=== PATIENT | male | born 1965 | race Caucasian/White ===

== ENCOUNTER → 2017-12-13 | Outpatient (CLI) | payer OTHER ==
--- NOTE | 2017-12-13 18:34 | PN ---
PROGRESS NOTE This is a 52-year-old male patient with severe AVA with an AHI of 102, coming in for a followup. The patient has cut down on his carb intake and he has lost approximately 30 pounds and he is currently down to 262 pounds. He is wearing his CPAP at a pressure of 16 cm of water. He is very compliant and he is still benefitting from the treatment. He is using the AirFit P10 nose pillow. He is waking up alert and refreshed during the day, averaging more than 6 hours of CPAP use per night, and has no specific complaints. He is interested in exploring other options in terms of his nose pillow. His current Delta score is down to 5 and he denies having fallen asleep while driving or doing any day activity. REVIEW OF SYSTEMS: Twelve-point review of systems was done. It was negative other than significant amount of weight loss along with dieting, and the patient has lost more than 30 pounds. PHYSICAL EXAMINATION: BP is 144/78, pulse 71, respirations 16, temperature 98.0, saturation 96% on room air. Weight is 262. Height is 5 feet 8 inches, BMI is 39.2, and Delta score is 5. GENERAL APPEARANCE: Calm, comfortable. Head is atraumatic, normocephalic. NECK: Supple. There is no JVD. No goiter or neck masses. LUNGS: Clear to auscultation. HEART: Sounds are regular rate and rhythm. Normal S1, S2. No S3, S4. No murmurs. ABDOMEN: Soft, nontender. No organomegaly. EXTREMITIES: No edema. No cyanosis or clubbing. Neurologically the patient is alert and oriented x3. There is no focal neurological deficit. PSYCHIATRIC: The patient has no anxiety or depression. SKIN: There is no wound or ulceration. IMPRESSION: 1. Severe obstructive sleep apnea with an AHI of 102, currently on CPAP pressure of 16 cm of water. 2. Morbid obesity with weight loss of more than 30 pounds, currently down to 262. 3. Hypersomnia, recovered. Delta score is down to 5. 4. Hypertension. 5. Hyperlipidemia. PLAN: 1. Drop the CPAP pressure down to 14 cm of water. 2. Try alternative masks, including the DreamWear medium-sized nose mask. The patient was very comfortable with the DreamWear and he is interested in switching his mask interface at a later stage. Currently he has 2 options, which are going to be the AirFit P10 and the DreamWear nose mask. We will make a final decision after trying both. I will see him back in a year's time in followup. Encourage further weight loss. DANIEL / TYLER: [id number] /
== END | disposition home or self-care (01) ==
LOC: SLEEP 16:32
PROVIDERS: ATTEND Internal Medicine Critical Care Medicine
DX: G47.33 Obstructive sleep apnea (adult) (pediatric) (principal); E66.01 Morbid (severe) obesity due to excess calories; I10 Essential (primary) hypertension; E78.5 Hyperlipidemia, unspecified; Z99.89 Dependence on other enabling machines and devices; Z68.39 Body mass index [BMI] 39.0-39.9, adult

== ENCOUNTER 2020-08-28 21:26 | Emergency (ER) | payer OTHER ==
[2020-08-28] MEDS ORDERED: MORPHINE SULFATE 4 MG/ML SYRINGE IV STA (22:31)
[2020-08-28] MEDS ORDERED: PANTOPRAZOLE 40 MG/10 ML VIAL IVP STA (22:31)
[2020-08-28] MEDS ORDERED: SODIUM CHLORIDE 0.9% 1,000 ML IV STA (22:31)
[2020-08-28 22:59] LABS: Basophils # (A) 0.1 k/uL (0-0.2); Basophils % (A) 1 %; Eosinophils # (A) 0.3 k/uL (0-0.7); Eosinophils % (A) 3 %; HGB 13.1 gm/dL (13.0-17.5); Lymphocytes % (A) 22 %; MCH 30.2 pg (25.0-35.0); MCHC 33.7 g/dL (31.0-37.0); MCV 89.4 fL (80.0-100.0); Mean Platelet Volume 6.6; Monocytes # (A) 0.6 k/uL (0-1.0); Monocytes % (A) 7 %; Neutrophils # (A) 5.7 k/uL (1.3-7.7); Neutrophils % (A) 65 %; Platelet Count 298 k/uL (150-450); RBC 4.36 m/uL (4.30-5.90); WBC 8.8 k/uL (3.8-10.6)
[2020-08-28 23:03] LABS: Appearance,Urine Clear (Clear); Bilirubin,Urine Negative (Negative); Blood,Urine Trace (Negative); Color,Urine Light Yellow; Glucose,Urine (UA) Negative (Negative); Ketones,Urine Negative (Negative); Leukocyte Esterase,Urine Negative (Negative); Mucus,Urine Rare /hpf; Nitrite,Urine Negative (Negative); Protein,Urine Trace (Negative); RBC,Urine 4 /hpf (0-5); Specific Gravity,Urine 1.024 (1.001-1.035); Squamous Epithelial Cell,Urine <1 /hpf (0-4); Urobilinogen,Urine <2.0 mg/dL (<2.0)
[2020-08-28 23:12] LABS: ALT 49 U/L (4-49); AST 28 U/L (17-59); African American GFR (CKD) >90 (>60 ml/min/1.73 sqM); Albumin 4.7 g/dL (3.5-5.0); Alkaline Phosphatase 68 U/L (38-126); Amylase 47 U/L (30-110); Anion Gap 11 mmol/L; Blood Urea Nitrogen 27 mg/dL (9-20); Calcium 9.3 mg/dL (8.4-10.2); Carbon Dioxide 27 mmol/L (22-30); Chloride 103 mmol/L (98-107); Glucose 109 mg/dL (74-99); Lipase 70 U/L (23-300); Magnesium 2.2 mg/dL (1.6-2.3); Non-African American GFR(CKD) >90 (>60 ml/min/1.73 sqM); Phosphorus 4.1 mg/dL (2.5-4.5); Sodium 141 mmol/L (137-145); Total Bilirubin 0.4 mg/dL (0.2-1.3); Total Protein 7.4 g/dL (6.3-8.2)
--- NOTE | 2020-08-28 23:12 | CT ---
EXAMINATION TYPE: CT abdomen pelvis w con DATE OF EXAM: 08/28/2020 COMPARISON: None HISTORY: lower back pain CT DLP: 2104 mGycm Automated exposure control for dose reduction was used. CONTRAST: Performed with IV Contrast, patient injected with 100 mL of Isovue 300. Images obtained from the diaphragm to the floor the pelvis with IV contrast. There is mild subsegmental atelectasis at the lung bases. Heart size is normal. There is no pericardi al effusion. Liver spleen pancreas gallbladder stomach appear intact. Bile ducts are not dilated. There is no adrenal mass. Kidneys show satisfactory contrast opacification. There is no hydronephrosi s. There are small bilateral renal parapelvic cysts. Ureters are not dilated. There is no retroperito malik adenopathy. There is 3.4 cm fat-containing umbilical hernia. Bladder distends smoothly. There is no inguinal hernia. There are multiple sigmoid diverticula. There is no diverticulitis. Appendix is posterior and superior and appears normal. Lumbar vertebra have normal alignment. There is vacuum disc at L4-5 and L3-4. The bony pelvis is inta ct. I see no bony destructive process. The hip joints are intact. IMPRESSION: Normal appendix. Sigmoid diverticulosis without diverticulitis. Fat-containing umbilical hernia. Mild subsegmental atelectasis at the lung bases.
[2020-08-28 23:15] LABS: Potassium 4.2 mmol/L (3.5-5.1)
--- NOTE | 2020-08-28 23:23 | ED ---
Back Pain HPI - General Chief Complaint: Back Pain/Injury Stated Complaint: lower back pain Time Seen by Provider: 08/28/20 22:26 Source: patient, RN notes reviewed, old records reviewed Limitations: no limitations - History of Present Illness Initial Comments: This is an 54-year-old male DF for evaluation. Patient states he had no injury but is having having back pain for a few days now. Patient states he can't stop thinking about his back. He denies any significant chest pain no shortness of breath symptoms worse with movement. Patient does admit to symptoms being imp roved here in the emergency department. Patient denying any recent fever cough or congestion, no recent travel history or known sick contacts patient states the pain is mid back Bilateral wrapping around into his flanks. No change in bowel habits or urinary issue MD Complaint: back pain -: days(s) Similar Symptoms Previously: Yes Place: home Radiation: none Severity: moderate Severity scale (1-10): 6 Quality: aching Consistency: constant Improves With: none Worsens With: movement, sitting upright Context: unknown Associated Symptoms: denies other symptoms - Related Data Allergies Allergy/AdvReac Type Severity Reaction Status Date / Time No Known Allergies Allergy Verified 08/28/20 21:30 Review of Systems ROS Statement: Those systems with pertinent positive or pertinent negative responses have been documented in the HPI. ROS Other: All systems not noted in ROS Statement are negative. Past Medical History Past Medical History: No Reported History History of Any Multi-Drug Resistant Organisms: None Reported Past Surgical History: No Surgical Hx Reported Past Psychological History: No Psychological Hx Reported Smoking Status: Never smoker Past Alcohol Use History: Occasional Past Drug Use History: None Reported General Exam Limitations: no limitations General appearance: alert, in no apparent distress Head exam: Present: atraumatic, normocephalic, normal inspection Eye exam: Present: normal appearance, PERRL, EOMI. Absent: scleral icterus, conjunctival injection, periorbital swelling ENT exam: Present: normal exam, mucous membranes moist Neck exam: Present: normal inspection. Absent: tenderness, meningismus, lymphadenopathy Respiratory exam: Present: normal lung sounds bilaterally. Absent: respiratory distress, wheezes, rales, rhonchi, stridor Cardiovascular Exam: Present: regular rate, normal rhythm, normal heart sounds. Absent: systolic murmur, diastolic murmur, rubs, gallop, clicks GI/Abdominal exam: Present: soft, normal bowel sounds. Absent: distended, tenderness, guarding, rebound, rigid Extremities exam: Present: normal inspection, full ROM, normal capillary refill. Absent: tenderness, pedal edema, joint swelling, calf tenderness Back exam: Present: normal inspection Neurological exam: Present: alert, oriented X3, CN II-XII intact Psychiatric exam: Present: normal affect, normal mood Skin exam: Present: warm, dry, intact, normal color. Absent: rash Course Vital Signs 08/28/20 08/28/20 08/29/20 21:28 23:30 01:04 Temperature 98.2 F 98.6 F Pulse Rate 76 80 78 Respiratory 18 18 16 Rate Blood Pressure 193/89 159/85 140/94 O2 Sat by Pulse 99 99 98 Oximetry - Reevaluation(s) Reevaluation #1: Medical record is reviewed Patient has improved symptoms here in the ER Patient feels better Patient family informed results questions are answered Patient feels good for discharge Reevaluation #2: Patient remains in no distress offered observation for heart further testing. Patient denies complaint happy with results here in the ER and states he feels improved and ready for discharge Medical Decision Making - Medical Decision Making 54 male with nonspecific back pain and severely significant flank pain. Symptoms for a few secondary to negative for acute disease. Patient can be discharged home - Lab Data Result diagrams: 08/28/20 22:44 08/28/20 22:44 Lab Results 08/28/20 08/28/20 08/28/20 Range/Units 22:44 22:44 22:44 WBC 8.8 (3.8-10.6) k/uL RBC 4.36 (4.30-5.90) m/uL Hgb 13.1 (13.0-17.5) gm/dL Hct 39.0 (39.0-53.0) % MCV 89.4 (80.0-100.0) fL MCH 30.2 (25.0-35.0) pg MCHC 33.7 (31.0-37.0) g/dL RDW 13.0 (11.5-15.5) % Plt Count 298 (150-450) k/uL MPV 6.6 Neutrophils % 65 % Lymphocytes % 22 % Monocytes % 7 % Eosinophils % 3 % Basophils % 1 % Neutrophils # 5.7 (1.3-7.7) k/uL Lymphocytes # 2.0 (1.0-4.8) k/uL Monocytes # 0.6 (0-1.0) k/uL Eosinophils # 0.3 (0-0.7) k/uL Basophils # 0.1 (0-0.2) k/uL Sodium 141 (137-145) mmol/L Potassium 4.2 (3.5-5.1) mmol/L Chloride 103 (98-107) mmol/L Carbon Dioxide 27 (22-30) mmol/L Anion Gap 11 mmol/L BUN 27 H (9-20) mg/dL Creatinine 0.93 (0.66-1.25) mg/dL Est GFR (CKD-EPI)AfAm >90 (>60 ml/min/1.73 sqM) Est GFR (CKD-EPI)NonAf >90 (>60 ml/min/1.73 sqM) Glucose 109 H (74-99) mg/dL Plasma Lactic Acid [place] (0.7-2.0) mmol/L Calcium 9.3 (8.4-10.2) mg/dL Phosphorus 4.1 (2.5-4.5) mg/dL Magnesium 2.2 (1.6-2.3) mg/dL Total Bilirubin 0.4 (0.2-1.3) mg/dL AST 28 (17-59) U/L ALT 49 (4-49) U/L Alkaline Phosphatase 68 (38-126) U/L Total Protein 7.4 (6.3-8.2) g/dL Albumin 4.7 (3.5-5.0) g/dL Amylase 47 (30-110) U/L Lipase 70 (23-300) U/L Urine Color Light Yellow Urine Appearance Clear (Clear) Urine pH 7.0 (5.0-8.0) Ur Specific [place] 1.024 (1.001-1.035) Urine Protein Trace H (Negative) Urine Glucose (UA) Negative (Negative) Urine Ketones Negative (Negative) Urine Blood Trace H (Negative) Urine Nitrite Negative (Negative) Urine Bilirubin Negative (Negative) Urine Urobilinogen <2.0 (<2.0) mg/dL Ur Leukocyte Esterase Negative (Negative) Urine RBC 4 (0-5) /hpf Ur Squamous Epith Cells <1 (0-4) /hpf Urine Mucus Rare H (None) /hpf 08/28/20 Range/Units 22:44 WBC (3.8-10.6) k/uL RBC (4.30-5.90) m/uL Hgb (13.0-17.5) gm/dL Hct (39.0-53.0) % MCV (80.0-100.0) fL MCH (25.0-35.0) pg MCHC (31.0-37.0) g/dL RDW (11.5-15.5) % Plt Count (150-450) k/uL MPV Neutrophils % % Lymphocytes % % Monocytes % % Eosinophils % % Basophils % % Neutrophils # (1.3-7.7) k/uL Lymphocytes # (1.0-4.8) k/uL Monocytes # (0-1.0) k/uL Eosinophils # (0-0.7) k/uL Basophils # (0-0.2) k/uL Sodium (137-145) mmol/L Potassium (3.5-5.1) mmol/L Chloride (98-107) mmol/L Carbon Dioxide (22-30) mmol/L Anion Gap mmol/L BUN (9-20) mg/dL Creatinine (0.66-1.25) mg/dL Est GFR (CKD-EPI)AfAm (>60 ml/min/1.73 sqM) Est GFR (CKD-EPI)NonAf (>60 ml/min/1.73 sqM) Glucose (74-99) mg/dL Plasma Lactic Acid [place] 1.5 (0.7-2.0) mmol/L Calcium (8.4-10.2) mg/dL Phosphorus (2.5-4.5) mg/dL Magnesium (1.6-2.3) mg/dL Total Bilirubin (0.2-1.3) mg/dL AST (17-59) U/L ALT (4-49) U/L Alkaline Phosphatase (38-126) U/L Total Protein (6.3-8.2) g/dL Albumin (3.5-5.0) g/dL Amylase (30-110) U/L Lipase (23-300) U/L Urine Color Urine Appearance (Clear) Urine pH (5.0-8.0) Ur Specific [place] (1.001-1.035) Urine Protein (Negative) Urine Glucose (UA) (Negative) Urine Ketones (Negative) Urine Blood (Negative) Urine Nitrite (Negative) Urine Bilirubin (Negative) Urine Urobilinogen (<2.0) mg/dL Ur Leukocyte Esterase (Negative) Urine RBC (0-5) /hpf Ur Squamous Epith Cells (0-4) /hpf Urine Mucus (None) /hpf - Radiology Data Radiology results: report reviewed (Chest x-ray and CT of abdomen and pelvis are negative for significant acute disease), image reviewed Disposition Clinical Impression: Mid back pain Disposition: HOME SELF-CARE Condition: Good Instructions (If sedation given, give patient instructions): Acute Low Back Pain (ED) Is patient prescribed a controlled substance at d/c from ED?: No Referrals: Mary Bell MD [Primary Care Provider] - 1-2 days
--- NOTE | 2020-08-29 00:43 | XR ---
EXAM: XR Chest, 2 Views CLINICAL HISTORY: ITS. REASON XR Reason: cough TECHNIQUE: Frontal and lateral views of the chest. COMPARISON: No relevant prior studies available. FINDINGS: Lungs: Subsegmental left lower lobe atelectasis. No clear consolidation. Pleural space: Unremarkable. No pneumothorax. Heart: Unremarkable. No cardiomegaly. Mediastinum: Unremarkable. Bones/joints: Mild degenerative changes. IMPRESSION: Subsegmental left lower lobe atelectasis. No clear consolidation.
[2020-08-29 01:05] VITALS: BP 140/94; PULSE 78; RESP 16; TEMP 98.6
== END 2020-08-29 01:05 | disposition home or self-care (01) ==
LOC: EC 21:26
DX: M54.6 Pain in thoracic spine (principal); R10.9 Unspecified abdominal pain
CPT/HCPCS: 36415; 80053; 82150; 83605; 83690; 83735; 84100; 85025; 81001; 71046; 74177; 99284; 96360; 96361; Q9967

== ENCOUNTER 2022-10-22 08:37 | Emergency (ER) | payer OTHER ==
[2022-10-22 08:45] VITALS: RESP 18
[2022-10-22] MEDS ORDERED: KETOROLAC 15 MG/ML 1 ML VIAL IVP STA ×2 (09:09→11:31)
--- NOTE | 2022-10-22 09:12 | ED ---
General Adult HPI - General Chief complaint: Chest Pain Stated complaint: Chest Pain Time Seen by Provider: 10/22/22 08:45 Source: patient, RN notes reviewed, old records reviewed Mode of arrival: ambulatory Limitations: no limitations - History of Present Illness Initial comments: This is an 57-year-old male presents emergency Department complaining of pain just medial to the left scapula. Patient states he woke up this morning when he got about it started causing pain anytime he moved or took a deep breath per patient states the pain radiates a little bit around to the lateral chest and anterior chest but it's mostly in the back per patient states palpating the area increases the pain movement increases the pain the only way he gets any relief is if he sits still. Patient denies any shortness of breath. Patient denies any fever chills or cough. Patient states he has been working out more recently and been moving stuff in the garage but nothing that he thought was very heavy. Patient denies any fever chills or cough. Patient denies abdominal pain patient denies nausea vomiting. - Related Data Home Medications Medication Instructions Recorded Confirmed Fenofibrate [Lofibra] 160 mg PO DAILY 10/22/22 10/22/22 Losartan Potassium [Cozaar] 100 mg PO DAILY 10/22/22 10/22/22 Naproxen Sodium [Aleve] 220 mg PO BID PRN 10/22/22 10/22/22 amLODIPine [Norvasc] 10 mg PO HS 10/22/22 10/22/22 Previous Rx's Medication Instructions Recorded Cyclobenzaprine [Flexeril] 10 mg PO TID #20 tab 10/22/22 Ketorolac [Toradol] 10 mg PO Q6HR #15 tab 10/22/22 Allergies Allergy/AdvReac Type Severity Reaction Status Date / Time No Known Allergies Allergy Verified 10/22/22 09:21 Review of Systems ROS Statement: Those systems with pertinent positive or pertinent negative responses have been documented in the HPI. ROS Other: All systems not noted in ROS Statement are negative. Past Medical History Past Medical History: No Reported History History of Any Multi-Drug Resistant Organisms: None Reported Past Surgical History: No Surgical Hx Reported Past Psychological History: No Psychological Hx Reported Smoking Status: Never smoker Past Alcohol Use History: Occasional Past Drug Use History: None Reported General Exam - General Exam Comments Initial Comments: GENERAL: Patient is well-developed and well-nourished. Patient is nontoxic and well- hydrated and is in moderate distress ENT: Neck is soft and supple. No significant lymphadenopathy is noted. Oropharynx is clear. Moist mucous membranes. Neck has full range of motion without eliciting any pain. EYES: The sclera were anicteric and conjunctiva were pink and moist. Extraocular movements were intact and pupils were equal round and reactive to light. Eyelids were unremarkable. PULMONARY: Unlabored respirations. Good breath sounds bilaterally. No audible rales rhonchi or wheezing was noted. CARDIOVASCULAR: There is a regular rate and rhythm without any murmurs gallops or rubs. ABDOMEN: Soft and nontender with normal bowel sounds. No palpable organomegaly was noted. There is no palpable pulsatile mass. SKIN: Skin is clear with no lesions or rashes and otherwise unremarkable. NEUROLOGIC: Patient is alert and oriented x3. Cranial nerves II through XII are grossly intact. Motor and sensory are also intact. Normal speech, volume and content. Symmetrical smile. Cerebellar exam grossly intact. MUSCULOSKELETAL: Normal extremities with adequate strength and full range of motion. No lower extremity swelling or edema. No calf tenderness. patient's back pain is reproducible chest medial to the left scapula also is reproducible with movement. It immediately stops without movement. LYMPHATICS: No significant lymphadenopathy is noted PSYCHIATRIC: Normal psychiatric evaluation. Limitations: no limitations Course Vital Signs 10/22/22 10/22/22 10/22/22 08:41 09:59 11:18 Temperature 97.6 F Pulse Rate 71 65 65 Respiratory 18 18 18 Rate Blood Pressure 150/86 112/64 112/64 O2 Sat by Pulse 96 98 96 Oximetry Medical Decision Making - Medical Decision Making EKG was interpreted by myself shows a sinus rhythm at [address] interval is 143 QRSs 104 QT interval 390 QTC is 412. Patient's EKG shows no ST segment elevation or depression. Was pt. sent in by a medical professional or institution (, PA, DIRECTOR OF PHILANTHROPY, urgent care, hospital, or halfway...) When possible be specific @ -No Did you speak to anyone other than the patient for history (EMS, parent, family, police, friend...)? What history was obtained from this source @ -No Did you review nursing and triage notes (agree or disagree)? Why? @ -I reviewed and agree with nursing and triage notes Were old charts reviewed (outside hosp., previous admission, EMS record, old EKG, old radiological studies, urgent care reports/EKG's, halfway records)? Report findings @ -No old charts were reviewed Differential Diagnosis (chest pain, altered mental status, abdominal pain women, abdominal pain men, vaginal bleeding, weakness, fever, dyspnea, syncope, headache, dizziness, GI bleed, back pain, seizure, CVA, palpatations, mental health, musculoskeletal)? @ -Differential Musculoskeletal Muscular strain, contusion, ligament sprain, fracture, arthritis, septic arthritis, bursitis, cellulitis, muscle spasm, nerve compression, DVT, arterial occlusion, herpes zoster, electrolyte abnormality, tumor.... This is not meant to be in all inclusive list EKG interpreted by me (3pts min.). @ -As above X-rays interpreted by me (1pt min.). @ -Chest x-ray shows no acute abnormality I did interpreted myself CT interpreted by me (1pt min.). @ -None done U/S interpreted by me (1pt. min.). @ -None done What testing was considered but not performed or refused? (CT, X-rays, U/S, labs)? Why? @ -None What meds were considered but not given or refused? Why? @ -None Did you discuss the management of the patient with other professionals (professionals i.e. , PA, DIRECTOR OF PHILANTHROPY, lab, RT, psych nurse, social work professor, physician general internal medicine, teacher, airplane first officer, disability case manager)? Give summary @ -No Was smoking cessation discussed for >3mins.? @ -No Was critical care preformed (if so, how long)? @ -No Were there social determinants of health that impacted care today? How? (Homeles sness, low income, unemployed, alcoholism, drug addiction, transportation, low edu. Level, literacy, decrease access to med. care, penitentiary, rehab)? @ -No Was there de-escalation of care discussed even if they declined (Discuss DNR or withdrawal of care, Hospice)? DNR status @ -No What co-morbidities impacted this encounter? (DM, HTN, Smoking, COPD, CAD, Cancer, CVA, ARF, Chemo, Hep., AIDS, mental health diagnosis, sleep apnea, morbid obesity)? @ -None Was patient admitted / discharged? Hospital course, mention meds given and route, prescriptions, significant lab abnormalities, going to OR and other pertinent info. @ -Patient received Toradol and Valium initially and did get some relief with that after a little bit the patient did receive some Dilaudid and another shot of Toradol was feeling considerably better he was able to move around but he could make the pain come if he twisted or moved quickly. Patient was comfortable going home at this time to follow-up with his doctor. Undiagnosed new problem with uncertain prognosis? @ -No Drug Therapy requiring intensive monitoring for toxicity (Heparin, Nitro, Insulin, Cardizem)? @ -No Were any procedures done? @ -No Diagnosis/symptom? @ -Musculoskeletal back pain Acute, or Chronic, or Acute on Chronic? @ -Acute Uncomplicated (without systemic symptoms) or Complicated (systemic symptoms)? @ -Complicated Side effects of treatment? @ -No Exacerbation, Progression, or Severe Exacerbation? @ -No Poses a threat to life or bodily function? How? (Chest pain, [place], [place], pneumonia, PE, COPD, DKA, ARF, appy, cholecystitis, CVA, Diverticulitis, Homicidal, Suicidal, threat to staff... and all critical care pts) @ -No - Lab Data Result diagrams: 10/22/22 09:11 10/22/22 09:11 Lab Results 10/22/22 10/22/22 10/22/22 Range/Units 09:11 09:11 09:11 WBC 5.7 (3.8-10.6) k/uL RBC 4.19 L (4.30-5.90) m/uL Hgb 12.5 L (13.0-17.5) gm/dL Hct 37.6 L (39.0-53.0) % MCV 89.7 (80.0-100.0) fL MCH 30.0 (25.0-35.0) pg MCHC 33.4 (31.0-37.0) g/dL RDW 13.5 (11.5-15.5) % Plt Count 365 (150-450) k/uL MPV 7.0 Neutrophils % 57 % Lymphocytes % 28 % Monocytes % 7 % Eosinophils % 4 % Basophils % 1 % Neutrophils # 3.2 (1.3-7.7) k/uL Lymphocytes # 1.6 (1.0-4.8) k/uL Monocytes # 0.4 (0-1.0) k/uL Eosinophils # 0.2 (0-0.7) k/uL Basophils # 0.1 (0-0.2) k/uL PT 10.6 (9.0-12.0) sec INR 1.0 (<1.2) APTT 27.1 (22.0-30.0) sec D-Dimer 0.27 (<0.60) mg/L FEU Sodium 138 (137-145) mmol/L Potassium 4.3 (3.5-5.1) mmol/L Chloride 106 (98-107) mmol/L Carbon Dioxide 22 (22-30) mmol/L Anion Gap 10 mmol/L BUN 21 H (9-20) mg/dL Creatinine 0.94 (0.66-1.25) mg/dL Est GFR (CKD-EPI)AfAm >90 (>60 ml/min/1.73 sqM) Est GFR (CKD-EPI)NonAf 89 (>60 ml/min/1.73 sqM) Glucose 104 H (74-99) mg/dL Calcium 9.3 (8.4-10.2) mg/dL Magnesium 2.1 (1.6-2.3) mg/dL Total Bilirubin 0.4 (0.2-1.3) mg/dL AST 27 (17-59) U/L ALT 41 (4-49) U/L Alkaline Phosphatase 55 (38-126) U/L Troponin I (0.000-0.034) ng/mL Total Protein 7.3 (6.3-8.2) g/dL Albumin 4.6 (3.5-5.0) g/dL 10/22/22 Range/Units 09:11 WBC (3.8-10.6) k/uL RBC (4.30-5.90) m/uL Hgb (13.0-17.5) gm/dL Hct (39.0-53.0) % MCV (80.0-100.0) fL MCH (25.0-35.0) pg MCHC (31.0-37.0) g/dL RDW (11.5-15.5) % Plt Count (150-450) k/uL MPV Neutrophils % % Lymphocytes % % Monocytes % % Eosinophils % % Basophils % % Neutrophils # (1.3-7.7) k/uL Lymphocytes # (1.0-4.8) k/uL Monocytes # (0-1.0) k/uL Eosinophils # (0-0.7) k/uL Basophils # (0-0.2) k/uL PT (9.0-12.0) sec INR (<1.2) APTT (22.0-30.0) sec D-Dimer (<0.60) mg/L FEU Sodium (137-145) mmol/L Potassium (3.5-5.1) mmol/L Chloride (98-107) mmol/L Carbon Dioxide (22-30) mmol/L Anion Gap mmol/L BUN (9-20) mg/dL Creatinine (0.66-1.25) mg/dL Est GFR (CKD-EPI)AfAm (>60 ml/min/1.73 sqM) Est GFR (CKD-EPI)NonAf (>60 ml/min/1.73 sqM) Glucose (74-99) mg/dL Calcium (8.4-10.2) mg/dL Magnesium (1.6-2.3) mg/dL Total Bilirubin (0.2-1.3) mg/dL AST (17-59) U/L ALT (4-49) U/L Alkaline Phosphatase (38-126) U/L Troponin I <0.012 (0.000-0.034) ng/mL Total Protein (6.3-8.2) g/dL Albumin (3.5-5.0) g/dL Disposition Clinical Impression: Musculoskeletal back pain Disposition: HOME SELF-CARE Condition: Good Instructions (If sedation given, give patient instructions): Musculoskeletal Pain (ED) Prescriptions: Cyclobenzaprine [Flexeril] 10 mg PO TID #20 tab Ketorolac [Toradol] 10 mg PO Q6HR #15 tab Is patient prescribed a controlled substance at d/c from ED?: No Referrals: Deonte Wilkes DO [Primary Care Provider] - 1-2 days Time of Disposition: 12:10
[2022-10-22 09:31] LABS: Basophils # (A) 0.1 k/uL (0-0.2); Basophils % (A) 1 %; Eosinophils # (A) 0.2 k/uL (0-0.7); Eosinophils % (A) 4 %; HCT 37.6 % (39.0-53.0); HGB 12.5 gm/dL (13.0-17.5); Lymphocytes # (A) 1.6 k/uL (1.0-4.8); Lymphocytes % (A) 28 %; MCHC 33.4 g/dL (31.0-37.0); MCV 89.7 fL (80.0-100.0); Monocytes # (A) 0.4 k/uL (0-1.0); Monocytes % (A) 7 %; Neutrophils # (A) 3.2 k/uL (1.3-7.7); Neutrophils % (A) 57 %; Platelet Count 365 k/uL (150-450); RBC 4.19 m/uL (4.30-5.90); RDW 13.5 % (11.5-15.5); WBC 5.7 k/uL (3.8-10.6)
[2022-10-22 09:38] LABS: Partial Thromboplastin Time 27.1 sec (22.0-30.0); Prothrombin Time 10.6 sec (9.0-12.0)
[2022-10-22 09:44] LABS: ALT 41 U/L (4-49); AST 27 U/L (17-59); African American GFR (CKD) >90 (>60 ml/min/1.73 sqM); Albumin 4.6 g/dL (3.5-5.0); Alkaline Phosphatase 55 U/L (38-126); Anion Gap 10 mmol/L; Blood Urea Nitrogen 21 mg/dL (9-20); Calcium 9.3 mg/dL (8.4-10.2); Carbon Dioxide 22 mmol/L (22-30); Chloride 106 mmol/L (98-107); Glucose 104 mg/dL (74-99); Magnesium 2.1 mg/dL (1.6-2.3); Non-African American GFR(CKD) 89 (>60 ml/min/1.73 sqM); Potassium 4.3 mmol/L (3.5-5.1); Sodium 138 mmol/L (137-145); Total Bilirubin 0.4 mg/dL (0.2-1.3); Total Protein 7.3 g/dL (6.3-8.2)
[2022-10-22] MEDS ORDERED: HYDROmorphone 0.5 MG/0.5 ML SYRINGE IVP STA (10:08)
--- NOTE | 2022-10-22 10:15 | XR ---
EXAMINATION TYPE: XR chest 2V DATE OF EXAM: 10/22/2022 COMPARISON: Chest x-ray August 29, 2020 HISTORY: Chest pain. TECHNIQUE: Frontal and lateral views of the chest are obtained. FINDINGS: Horizontal left basilar opacity redemonstrated favoring linear scarring. Low lung volumes a gain seen. There is no suspicious new focal air space opacity, pleural effusion, or pneumothorax seen . The cardiac silhouette size is stable and within normal limits. The osseous structures are intac t. IMPRESSION: Low lung volumes and left basilar linear scarring redemonstrated. No new acute process.
[2022-10-22] MEDS ORDERED: traMADol 50 MG STARTER PACK 3 TAB BTL PO STA (12:10)
[2022-10-22 12:30] VITALS: BP 110/62; PULSE 67; TEMP 97.8
== END 2022-10-22 12:28 | disposition home or self-care (01) ==
LOC: EC 08:37
DX: M79.18 Myalgia, other site (principal); Z79.899 Other long term (current) drug therapy
CPT/HCPCS: 36415; 93005; 85379; 80053; 83735; 84484; 85025; 85610; 85730; 71046; 99285; 96374; 96376; 96375 ×2; J3360; J1885; J1170

== ENCOUNTER 2023-09-10 04:00 | Inpatient (IN) | payer BC, OTHER ==
--- NOTE | 2023-09-10 04:28 | ED ---
Abdominal Pain HPI - General Chief Complaint: Abdominal Pain Stated Complaint: abd pain Time Seen by Provider: 09/10/23 04:12 Source: patient Mode of arrival: ambulatory Limitations: no limitations - History of Present Illness Initial Comments: Mihai is a 57-year-old gentleman who presents the ER today with complaint of progressively worsening lower abdominal pain for the past few days now pain throughout the entire abdomen. Pain is associate with nausea but no vomiting. No change in bowel or bladder habits. No hematuria or dysuria. Patient has no history of inflammatory or irritable bowel. No previous abdominal surgeries. He has a known umbilical hernia and it has not been bothersome. - Related Data Home Medications Medication Instructions Recorded Confirmed Fenofibrate [Lofibra] 160 mg PO DAILY 10/22/22 10/22/22 Losartan Potassium [Cozaar] 100 mg PO DAILY 10/22/22 10/22/22 Naproxen Sodium [Aleve] 220 mg PO BID PRN 10/22/22 10/22/22 amLODIPine [Norvasc] 10 mg PO HS 10/22/22 10/22/22 Previous Rx's Medication Instructions Recorded Cyclobenzaprine [Flexeril] 10 mg PO TID #20 tab 10/22/22 Ketorolac [Toradol] 10 mg PO Q6HR #15 tab 10/22/22 Allergies Allergy/AdvReac Type Severity Reaction Status Date / Time No Known Allergies Allergy Verified 10/22/22 09:21 Review of Systems ROS Statement: Those systems with pertinent positive or pertinent negative responses have been documented in the HPI. ROS Other: All systems not noted in ROS Statement are negative. Past Medical History Past Medical History: Thyroid Disorder Additional Past Medical History / Comment(s): Anemia History of Any Multi-Drug Resistant Organisms: None Reported Past Surgical History: No Surgical Hx Reported Past Psychological History: No Psychological Hx Reported Smoking Status: Never smoker Past Alcohol Use History: Occasional Past Drug Use History: None Reported General Exam - General Exam Comments Initial Comments: Physical Exam GENERAL: Patient is well-developed and well-nourished. Patient appears uncomfortable HENT: Normocephalic, Atraumatic. EYES: PERRL, EOMI PULMONARY: Unlabored respirations. CARDIOVASCULAR: RRR Warm and well perfused extremities ABDOMEN: Obese, soft, somewhat distended and tender in the bilateral lower quadrants Umbilical hernia is soft and reducible SKIN: No rashes or bruising : Deferred NEUROLOGIC: Alert and oriented Normal speech Normal gait MUSCULOSKELETAL: Moving all extremities with no apparent injury PSYCHIATRIC: No SI/HI Limitations: no limitations Course Vital Signs 09/10/23 09/10/23 04:04 05:24 Temperature 98.8 F Pulse Rate 68 62 Respiratory 18 20 Rate Blood Pressure 185/104 172/81 O2 Sat by Pulse 97 95 Oximetry Medical Decision Making - Medical Decision Making Was pt. sent in by a medical professional or institution (, PA, SILK SCREEN REPAIRER, urgent care, hospital, or shelter...) When possible be specific @ -No Did you speak to anyone other than the patient for history (EMS, parent, family, police, friend...)? What history was obtained from this source @ -No Did you review nursing and triage notes (agree or disagree)? Why? @ -I reviewed and agree with nursing and triage notes Were old charts reviewed (outside hosp., previous admission, EMS record, old EKG, old radiological studies, urgent care reports/EKG's, shelter records)? Report findings @ -No old charts were reviewed Differential Diagnosis (chest pain, altered mental status, abdominal pain women, abdominal pain men, vaginal bleeding, weakness, fever, dyspnea, syncope, head ache, dizziness, GI bleed, back pain, seizure, CVA, palpatations, mental health)? @ -Differential Abdominal Pain Men: Appendicitis, cholecystitis, diverticulosis, ischemic bowel, pancreatitis, hepat itis, UTI, gastroenteritis, AAA, incarcerated hernia, bowel obstruction, constipation, inflammatory bowel, hepatitis, peptic ulcer disease, splenic infarction, perforated viscus, testicular torsion, this is not meant to be an all-inclusive list EKG interpreted by me (3pts min.). @ -As above X-rays interpreted by me (1pt min.). @ -None done CT interpreted by me (1pt min.). @ -No free air, dilated appendix U/S interpreted by me (1pt. min.). @ -None done What testing was considered but not performed or refused? (CT, X-rays, U/S, labs)? Why? @ -None What meds were considered but not given or refused? Why? @ -None Did you discuss the management of the patient with other professionals (prof denaionals i.e. , PA, SILK SCREEN REPAIRER, lab, RT, psych nurse, social work supervisor, human resources benefits manager, teacher, air defence officer, returned case inspector)? Give summary @ -On-call general surgeon Dr. Hassan Was smoking cessation discussed for >3mins.? @ -No Was critical care preformed (if so, how long)? @ -No Were there social determinants of health that impacted care today? How? (Homelessness, low income, unemployed, alcoholism, drug addiction, transportation, low edu. Level, literacy, decrease access to med. care, fci, rehab)? @ -No Was there de-escalation of care discussed even if they declined (Discuss DNR or withdrawal of care, Hospice)? DNR status @ -No What co-morbidities impacted this encounter? (DM, HTN, Smoking, COPD, CAD, Cancer, CVA, ARF, Chemo, Hep., AIDS, mental health diagnosis, sleep apnea, morbid obesity)? @ -Morbid obesity Was patient admitted / discharged? Hospital course, mention meds given and route, prescriptions, significant lab abnormalities, going to OR and other pertinent info. @ -Admit Patient was seen and evaluated history was obtained from patient at bedside. Labs were obtained and CT imaging was obtained and is concerning for an acute appendicitis. These results were discussed Dr. Hassan who agrees with plan for admission with plan for surgery. Patient was treated with morphine, Toradol and Dilaudid in the ER he was given Zofran for antiemetic and Zosyn antibiotic. Undiagnosed new problem with uncertain prognosis? @ -No Drug Therapy requiring intensive monitoring for toxicity (Heparin, Nitro, Insulin, Cardizem)? @ -No Were any procedures done? @ -No Diagnosis/symptom? @ -Acute appendicitis Acute, or Chronic, or Acute on Chronic? @ -Acute Uncomplicated (without systemic symptoms) or Complicated (systemic symptoms)? @ -Complicated Side effects of treatment? @ -No Exacerbation, Progression, or Severe Exacerbation? @ -No Poses a threat to life or bodily function? How? (Chest pain, [place], [place], pneumonia, PE, COPD, DKA, ARF, appy, cholecystitis, CVA, Diverticulitis, Homicidal, Suicidal, threat to staff... and all critical care pts) @ -Yes can advance to peritonitis sepsis septic shock - Lab Data Result diagrams: 09/10/23 04:20 09/10/23 04:20 Lab Results 09/10/23 09/10/23 09/10/23 Range/Units 04:20 04:20 05:30 WBC 16.3 H (3.8-10.6) k/uL RBC 4.43 (4.30-5.90) m/uL Hgb 13.3 (13.0-17.5) gm/dL Hct 40.1 (39.0-53.0) % MCV 90.4 (80.0-100.0) fL MCH 30.0 (25.0-35.0) pg MCHC 33.2 (31.0-37.0) g/dL RDW 13.3 (11.5-15.5) % Plt Count 327 (150-450) k/uL MPV 6.8 Neutrophils % 83 % Lymphocytes % 9 % Monocytes % 4 % Eosinophils % 2 % Basophils % 1 % Neutrophils # 13.6 H (1.3-7.7) k/uL Lymphocytes # 1.5 (1.0-4.8) k/uL Monocytes # 0.7 (0-1.0) k/uL Eosinophils # 0.3 (0-0.7) k/uL Basophils # 0.1 (0-0.2) k/uL Sodium 138 (137-145) mmol/L Potassium 4.9 (3.5-5.1) mmol/L Chloride 108 H (98-107) mmol/L Carbon Dioxide 20 L (22-30) mmol/L Anion Gap 10 mmol/L BUN 22 H (9-20) mg/dL Creatinine 0.81 (0.66-1.25) mg/dL Est GFR (CKD-EPI)AfAm >90 (>60 ml/min/1.73 sqM) Est GFR (CKD-EPI)NonAf >90 (>60 ml/min/1.73 sqM) Glucose 138 H (74-99) mg/dL Calcium 10.5 H (8.4-10.2) mg/dL Total Bilirubin 0.6 (0.2-1.3) mg/dL AST 29 (17-59) U/L ALT 39 (4-49) U/L Alkaline Phosphatase 63 (38-126) U/L Total Protein 7.7 (6.3-8.2) g/dL Albumin 4.9 (3.5-5.0) g/dL Lipase 54 (23-300) U/L Urine Color Colorless Urine Appearance Clear (Clear) Urine pH 5.5 (5.0-8.0) Ur Specific [place] 1.019 (1.001-1.035) Urine Protein Trace H (Negative) Urine Glucose (UA) Negative (Negative) Urine Ketones Negative (Negative) Urine Blood Trace H (Negative) Urine Nitrite Negative (Negative) Urine Bilirubin Negative (Negative) Urine Urobilinogen <2.0 (<2.0) mg/dL Ur Leukocyte Esterase Negative (Negative) Urine RBC 1 (0-5) /hpf Urine WBC 1 (0-5) /hpf Ur Squamous Epith Cells <1 (0-4) /hpf Urine Mucus Rare H (None) /hpf Disposition Clinical Impression: Acute appendicitis Disposition: ADMITTED IP TO THIS HOSP Condition: Stable Is patient prescribed a controlled substance at d/c from ED?: No Referrals: Deonte Wilkes DO [Primary Care Provider] - 1-2 days
[2023-09-10] MEDS: MORPHINE SULFATE 4 MG/ML SYRINGE IVP STA (04:35)
[2023-09-10 04:36] LABS: Basophils # (A) 0.1 k/uL (0-0.2); Basophils % (A) 1 %; Eosinophils # (A) 0.3 k/uL (0-0.7); Eosinophils % (A) 2 %; HCT 40.1 % (39.0-53.0); HGB 13.3 gm/dL (13.0-17.5); Lymphocytes # (A) 1.5 k/uL (1.0-4.8); Lymphocytes % (A) 9 %; MCHC 33.2 g/dL (31.0-37.0); MCV 90.4 fL (80.0-100.0); Mean Platelet Volume 6.8; Monocytes # (A) 0.7 k/uL (0-1.0); Monocytes % (A) 4 %; Neutrophils # (A) 13.6 k/uL (1.3-7.7); Neutrophils % (A) 83 %; Platelet Count 327 k/uL (150-450); RBC 4.43 m/uL (4.30-5.90); RDW 13.3 % (11.5-15.5); WBC 16.3 k/uL (3.8-10.6)
[2023-09-10] MEDS: ONDANSETRON 4 MG/2 ML VIAL IVP STA (04:36)
[2023-09-10 05:09] LABS: ALT 39 U/L (4-49); AST 29 U/L (17-59); African American GFR (CKD) >90 (>60 ml/min/1.73 sqM); Albumin 4.9 g/dL (3.5-5.0); Alkaline Phosphatase 63 U/L (38-126); Anion Gap 10 mmol/L; Blood Urea Nitrogen 22 mg/dL (9-20); Calcium 10.5 mg/dL (8.4-10.2); Carbon Dioxide 20 mmol/L (22-30); Chloride 108 mmol/L (98-107); Glucose 138 mg/dL (74-99); Lipase 54 U/L (23-300); Non-African American GFR(CKD) >90 (>60 ml/min/1.73 sqM); Potassium 4.9 mmol/L (3.5-5.1); Sodium 138 mmol/L (137-145); Total Bilirubin 0.6 mg/dL (0.2-1.3); Total Protein 7.7 g/dL (6.3-8.2)
[2023-09-10 05:38] LABS: Appearance,Urine Clear (Clear); Bilirubin,Urine Negative (Negative); Blood,Urine Trace (Negative); Color,Urine Colorless; Glucose,Urine (UA) Negative (Negative); Ketones,Urine Negative (Negative); Leukocyte Esterase,Urine Negative (Negative); Mucus,Urine Rare /hpf; Nitrite,Urine Negative (Negative); PH, Urine 5.5 (5.0-8.0); Protein,Urine Trace (Negative); RBC,Urine 1 /hpf (0-5); Specific Gravity,Urine 1.019 (1.001-1.035); Squamous Epithelial Cell,Urine <1 /hpf (0-4); Urobilinogen,Urine <2.0 mg/dL (<2.0); WBC,Urine 1 /hpf (0-5)
[2023-09-10] MEDS: KETOROLAC 15 MG/ML 1 ML VIAL IVP STA (06:32)
--- NOTE | 2023-09-10 06:34 | CT ---
EXAM: CT Abdomen and Pelvis Without Intravenous Contrast CLINICAL HISTORY: ITS.REASON CT Reason: lower abdominal pain TECHNIQUE: Axial computed tomography images of the abdomen and pelvis without intravenous contrast. CTDI is 30.9 mGy and DLP is 1911 mGy-cm. This CT exam was performed using one or more of the following dose reduction techniques: automated exposure control, adjustment of the mA and/or kV according to patient size, and/or use of iterative reconstruction technique. COMPARISON: No relevant prior studies available. FINDINGS: Limitations: Limited evaluation in the absence of contrast. Lung bases: Unremarkable. No mass. No consolidation. ABDOMEN: Liver: Hepatic steatosis. Gallbladder and bile ducts: Unremarkable. No calcified stones. No ductal dilation. Pancreas: Unremarkable. No ductal dilation. Spleen: Unremarkable. No splenomegaly. Adrenals: Unremarkable. No mass. Kidneys and ureters: No evidence of radiopaque renal calculi or signs of collecting system dilatation. Stomach and bowel: Colonic diverticulosis. No evidence of diverticulitis. No evidence of bowel obstruction. Midline fat and bowel- containing umbilical hernia. PELVIS: Appendix: Acute appendicitis with the dilated and inflamed appendix measuring up to 2.5 cm. Suspected fecalith noted at its space with additional fecalith along the midportion the appendix. Please note that the inflamed appendix abuts the gallbladder. Prominent fluid noted adjacent to the appendix without gross evidence of gas. Underlying perforation is not excluded. Consider postcontrast imaging. Bladder: Unremarkable. No stones. Reproductive: Prostatomegaly with prostatic calcifications. ABDOMEN and PELVIS: Intraperitoneal space: Unremarkable. No free air. No significant fluid collection. Bones/joints: Degenerative changes in the spine. No acute fracture. No dislocation. Soft tissues: See above. Vasculature: Atherosclerotic disease. No abdominal aortic aneurysm. Lymph nodes: Unremarkable. No enlarged lymph nodes. IMPRESSION: 1. Limited evaluation in the absence of contrast. 2. No evidence of radiopaque renal calculi or signs of collecting system dilatation. 3. Acute appendicitis with the dilated and inflamed appendix measuring up to 2.5 cm. Suspected fecalith noted at its space with additional fecalith along the midportion the appendix. Please note that the inflamed appendix abuts the gallbladder. 4. Prominent fluid noted adjacent to the appendix without gross evidence of gas. Underlying perforation is not excluded. Consider postcontrast imaging. <MYCVCSECTION> Communications: 09/10/23 06:41 Verify Receipt Verified receipt with BOONE Lubinh, to be given to Dr. Meyer on 09/09 06:41 (-05:00)
[2023-09-10] MEDS ORDERED: NALOXONE 0.4 MG/ML 1 ML VIAL IV PRN (06:38)
[2023-09-10] MEDS: HYDROmorphone 1 MG/ML 1 ML SYRINGE IVP STA ×2 (06:44→06:56)
[2023-09-10] MEDS: PIPERACILLIN-TAZOBACTAM 3.375 GM in SODIUM CHLORIDE 0.9% 100 ML IVPB STA (06:56)
[2023-09-10] MEDS: SODIUM CHLORIDE 0.9% 1,000 ML IV SCH (06:56)
[2023-09-10] MEDS: HYDROmorphone 0.5 MG/0.5 ML SYRINGE IVP STA (06:57)
[2023-09-10] MEDS: MORPHINE SULFATE 4 MG/ML SYRINGE IV PRN ×2 (08:23→11:11)
[2023-09-10] MEDS: ONDANSETRON 4 MG/2 ML VIAL IVP ONE (15:23)
[2023-09-10] MEDS: DEXAMETHASONE SOD PHOSPHATE 4 MG/ML 1 ML VIAL IVP ONE (15:24)
[2023-09-10] MEDS: SCOPOLAMINE 1 MG/72 HR PATCH TRANSDERM ONE (15:24)
[2023-09-10] MEDS ORDERED: ROCURONIUM 10 MG/ML (5 ML VIAL) IV ONE (15:42)
[2023-09-10] MEDS ORDERED: PROPOFOL 10 MG/ML 20 ML VIAL IV ONE (15:42)
[2023-09-10] MEDS ORDERED: MIDAZOLAM 2 MG/2 ML VIAL ONE (15:42)
[2023-09-10] MEDS ORDERED: HYDROmorphone (PF) 1 MG/ML ONE (15:42)
[2023-09-10] MEDS ORDERED: SUCCINYLCHOLINE CHLORIDE 200 MG/10 ML VIAL IV ONE (15:42)
[2023-09-10] MEDS: IV FLUID CONTINUATION 1,000 ML IV ONE (15:42)
[2023-09-10] MEDS ORDERED: fentaNYL (PF) 50 MCG/ML 2 ML AMP ONE (15:42)
[2023-09-10] MEDS ORDERED: LIDOCAINE 1% INJ 10MG/ML (20 ML MDV) ONE (15:42)
[2023-09-10] MEDS: SODIUM CHLORIDE 0.9% 100 ML with ceFAZolin 3,000 MG IV ONE (15:56)
[2023-09-10] MEDS: LACTATED RINGERS 1,000 ML IV ONE ×3 (16:08→18:48)
--- NOTE | 2023-09-10 19:30 | P.CON ---
Consult Note - . Consult date: 09/10/23 Assessment/Plan:: Patient is a 57-year-old male presenting to [facility] with complaints of abdominal pain for the last several days patient admits to decrease appetite increased nausea vomiting abdominal pain radiating from the umbilicus to the right upper and right lower quadrant. Patient denies any alleviating factors. Denies fever chills shortness breath or chest pain. Past medical history thyroid disease sleep apnea Past surgical history arm surgery Social denies 3 ALLERGIES NO KNOWN DRUG ALLERGIES Review of systems negative except above HPI hysical Exam GENERAL: Patient is well-developed and well-nourished. Patient appears uncomfortable HENT: Normocephalic, Atraumatic. EYES: PERRL, EOMI PULMONARY: Unlabored respirations. CARDIOVASCULAR: RRR Warm and well perfused extremities ABDOMEN: Obese, soft, somewhat distended and tender in the bilateral lower quadrants Umbilical hernia is soft and reducible SKIN: No rashes or bruising : Deferred NEUROLOGIC: Alert and oriented Normal speech Normal gait MUSCULOSKELETAL: Moving all extremities with no apparent injury PSYCHIATRIC: No SI/HI Limitations: no limitations 57-year-old male with abdominal pain suspicious for appendicitis We'll take to the OR Given antibiotics IV hydration Nothing by mouth for now
--- NOTE | 2023-09-10 22:50 | P.OP ---
Date of Procedure: 09/10/23 Preoperative Diagnosis: Appendicitis Postoperative Diagnosis: Perforated appendicitis Procedure(s) Performed: Laparoscopic appendectomy with drain placement Surgeon: Mika Giordano Estimated Blood Loss (ml): 50 IV fluids (ml): 2 Urine output (ml): 250 Pathology: other (Sent) Condition: stable Disposition: floor Indications for Procedure: Appendicitis Operative Findings: Perforated appendicitis walled off by the gallbladder Description of Procedure: Patient brought to the operating suite where he was cleaned and draped in sterile fashion, was performed and everyone agreed with the information resited. A 5 mm port was then used to gain access into the abdomen and insufflated. 2 more working ports were placed in the mid abdomen one 5 mm port once 12 mm port. Once in the abdomen we noticed a redundant ascending colon with the cecum at the gallbladder. The gallbladder was significantly walled off and I believe it has been perforated for while its a great deal of patience to take the appendix off of the phlegmon and gallbladder wall. This was done using a combination of blunt and sharp dissection along with a LigaSure device. The appendiceal artery was ligated in several places Once we were able to free up the proximal base and Endo YAO staple was used to staple across. However because of the appendix was so friable we ended up taking the appendix down to the tip and piecemeal. W e get up placing another 5 mm port to gain access. 2 Surgicel powder were used to gain hemostasis. A 19-Occitan drain was placed in the right upper quadrant where the appendix was walled off. The Occitan drain was secured using a 2-0 nylon suture. The appendix was taken out and a Endo Catch bag. We observed the staple line. We then in turn our attention to the umbilicus of which she had a 1 cm defect. This was closed using 0 Vicryl in a [id number] fashion 2. We desufflated the abdomen under direct visualization and removal insurance. He closed the ports using a 4-0 Monocryl suture.
[2023-09-11] MEDS: oxyCODONE-APAP 5-325MG 1 EACH TAB PO PRN (00:45)
[2023-09-11] MEDS ORDERED: IBUPROFEN 400 MG TAB PO PRN (10:31)
--- NOTE | 2023-09-11 10:34 | P.PN ---
Subjective Progress Note Date: 09/11/23 Principal diagnosis: Appendicitis Patient sitting up in the chair. Says he feels better than he did preoperatively. Still having soreness diffusely. Vital signs are stable. Dr eriberto is serosanguineous. No nausea. Appetite minimal. Objective - Vital Signs Vital signs: Vital Signs Temp 98.6 F 09/11/23 07:21 Pulse 78 09/11/23 07:21 Resp 17 09/11/23 07:21 BP 127/66 09/11/23 07:21 Pulse Ox 94 L 09/11/23 07:21 FiO2 Intake & Output 09/10/23 09/11/23 09/11/23 17:59 06:59 18:59 Intake Total Output Total Balance Weight Intake: IV Output: Drainage Right Lower Abdomen Urine Estimated Blood Loss Other: Voiding Method # Voids - Exam Abdomen: Soft, mild diffuse tenderness, incisions clean and dry, mild distention - Labs CBC & Chem 7: 09/10/23 04:20 09/10/23 04:20 Assessment and Plan (1) Acute appendicitis Narrative/Plan: Patient doing fairly well after laparoscopic appendectomy yesterday. This was a challenging case. It was ruptured. Continue antibiotics. DVT and GI prophylaxis. Continue clear liquids. Ambulate. Monitor drain output. Current Visit: Yes Status: Acute Code(s): K35.80 - UNSPECIFIED ACUTE APPENDICITIS SNOMED Code(s): 59816821
[2023-09-11] MEDS: KETOROLAC 15 MG/ML 1 ML VIAL IVP SCH (11:28)
[2023-09-11] MEDS: PIPERACILLIN-TAZOBACTAM 3.375 GM in SODIUM CHLORIDE 0.9% 100 ML IVPB SCH (11:28)
[2023-09-11] MEDS: HEPARIN SODIUM,PORCINE 5,000 UNIT/ML 1 ML VIAL SQ SCH (11:28)
[2023-09-11] MEDS: HYDROcodone/APAP 5-325MG 1 EACH TAB PO PRN (17:26)
[2023-09-12 08:31] LABS: Basophils # (A) 0.08 X 10*3/uL (0.00-0.10); Basophils % (A) 0.6 %; Eosinophils # (A) 0.21 X 10*3/uL (0.04-0.35); Eosinophils % (A) 1.7 %; HCT 34.3 % (39.6-50.0); HGB 11.4 g/dL (13.0-17.0); Lymphocytes # (A) 2.26 X 10*3/uL (0.90-5.00); MCH 30.5 pg (27.0-32.0); MCHC 33.2 g/dL (32.0-37.0); MCV 91.7 FL (80.0-97.0); Mean Platelet Volume 9.2 FL (9.5-12.2); Monocytes # (A) 1.14 X 10*3/uL (0.20-1.00); Monocytes % (A) 9.1 %; NRBC Per 100 WBC 0 X 10*3/uL (0.00-0.01); Neutrophils # (A) 8.84 X 10*3/uL (1.80-7.70); Neutrophils % (A) 70.2 %; Platelet Count 334 X 10*3/uL (140-440); RBC 3.74 X 10*6/uL (4.40-5.60); RDW 13.6 % (11.5-14.5); WBC 12.58 X 10*3/uL (4.50-10.00)
[2023-09-12 08:44] LABS: BUN/Creat Ratio 20.27 Ratio (12.00-20.00); Blood Urea Nitrogen 22.3 mg/dL (9.0-27.0); Calcium 9.1 mg/dL (8.7-10.3); Carbon Dioxide 23.2 mmol/L (21.6-31.8); Chloride 103 mmol/L (96-109); Glucose 101 mg/dL (70-110); Sodium 139 mmol/L (135-145)
[2023-09-12] MEDS: PANTOPRAZOLE 40 MG/10 ML VIAL IVP SCH (08:47)
--- NOTE | 2023-09-12 12:15 | P.PN ---
Subjective Progress Note Date: 09/12/23 CHIEF COMPLAINT: Perforated appendicitis HISTORY OF PRESENT ILLNESS: Patient is postop day #2 status post laparoscopic appendectomy with drain placement. Patient reports pain is controlled. He is having flatus. No bowel movement. Denies any nausea or vomiting AZAM drain with 80 mL serosanguineous output and had a hard and 20 mL output through the night. WBC is down from 16-12.8 PHYSICAL EXAM: VITAL SIGNS: Reviewed. GENERAL: Well-developed in no acute distress. ABDOMEN: Soft. Mildly distended. Incision sites clean dry and intact. Mild tenderness with palpation NEUROLOGIC: Alert and oriented. Cranial nerves II through XII grossly intact. ASSESSMENT: 1. Perforated appendicitis status post laparoscopic appendectomy PLAN: -Continue clear liquid diet -Add Ensure protein drinks -Encourage patient to ambulate -Encourage patient to use incentive spirometer -Continue pain management -Patient can shower -Continue to monitor AZAM drain output -DVT prophylaxis subcu heparin and GI prophylaxis Protonix Physician Career Technical Supervisor note has been reviewed by physician. Signing provider agrees with the documented findings, assessment, and plan of care. I have personally seen and examined the patient, reviewed the DIRECTOR COST /PAs history, exam and MDM and agree with the assessment and plan as written. Based on total visit time, I have performed more than 50% of the visit. As above: Patient somewhat more distended today. Instructed the patient to minimize liquid intake. Ambulate. Monitor AZAM output. Serosanguineous at present. Patient third spacing somewhat. Continue antibiotics. Will follow. Objective - Vital Signs Vital signs: Vital Signs Temp 99.1 F 09/12/23 07:07 Pulse 80 09/12/23 07:07 Resp 19 09/12/23 07:07 BP 132/76 09/12/23 07:07 Pulse Ox 94 L 09/12/23 07:07 FiO2 Intake & Output 09/11/23 09/12/23 09/12/23 18:59 06:59 18:59 Output Total 180 390 80 Balance -180 -390 -80 Output: Drainage 180 140 80 Right Lower Abdomen 180 140 80 Urine 250 Other: Voiding Method Toilet Urinal # Voids 2 - Labs CBC & Chem 7: 09/12/23 05:16 09/12/23 05:16 Labs: Abnormal Lab Results - Last 24 Hours (Table) 03/11/24 03/11/24 Range/Units 05:16 05:16 WBC 12.58 H (4.50-10.00) X 10*3/uL RBC 3.74 L (4.40-5.60) X 10*6/uL Hgb 11.4 L (13.0-17.0) g/dL Hct 34.3 L (39.6-50.0) % MPV 9.2 L (9.5-12.2) FL Immature Gran # 0.05 H (0.00-0.04) X 10*3/uL Neutrophils # 8.84 H (1.80-7.70) X 10*3/uL Monocytes # 1.14 H (0.20-1.00) X 10*3/uL Anion Gap 12.80 H (4.00-12.00) mmol/L BUN/Creatinine Ratio 20.27 H (12.00-20.00) Ratio
[2023-09-13] MEDS: ACETAMINOPHEN TAB 325 MG TAB PO PRN (06:48)
[2023-09-13 08:37] LABS: Basophils # (A) 0.07 X 10*3/uL (0.00-0.10); Eosinophils # (A) 0.31 X 10*3/uL (0.04-0.35); Eosinophils % (A) 4.2 %; HCT 30.6 % (39.6-50.0); Lymphocytes # (A) 1.79 X 10*3/uL (0.90-5.00); Lymphocytes % (A) 24.4 %; MCH 29.9 pg (27.0-32.0); MCHC 32.7 g/dL (32.0-37.0); MCV 91.3 FL (80.0-97.0); Mean Platelet Volume 9.2 FL (9.5-12.2); Monocytes # (A) 0.75 X 10*3/uL (0.20-1.00); Monocytes % (A) 10.2 %; NRBC Per 100 WBC 0 X 10*3/uL (0.00-0.01); Neutrophils % (A) 59.9 %; Platelet Count 304 X 10*3/uL (140-440); RBC 3.35 X 10*6/uL (4.40-5.60); RDW 13.2 % (11.5-14.5); WBC 7.34 X 10*3/uL (4.50-10.00)
--- NOTE | 2023-09-13 11:33 | P.PN ---
Subjective Progress Note Date: 09/13/23 CHIEF COMPLAINT: Perforated appendicitis HISTORY OF PRESENT ILLNESS: Patient is postop day #3 status post laparoscopic appendectomy with drain placement. Patient complaining of right-sided abdominal pain earlier this morning. Nurse has called and notified that patient is now reporting pain is moving up into the right side of the chest. Pain is worse with taking in a deep breath. Patient is on room air. He is not tachycardic. But he does have a family history of PEs. Patient denies any nausea or vomiting. He has been feeling bloated. He has cut back on his liquids. He is having some flatus. No bowel movements. Afebrile. AZAM drain 80 mL serosanguineous output. PHYSICAL EXAM: VITAL SIGNS: Reviewed. GENERAL: Well-developed in no acute distress. ABDOMEN: distended. Incision sites clean dry and intact. Mild tenderness with palpation right side NEUROLOGIC: Alert and oriented. Cranial nerves II through XII grossly intact. ASSESSMENT: 1. Perforated appendicitis status post laparoscopic appendectomy PLAN: -CTA of the chest with abdomen and pelvis ordered to rule out PE and to evaluate patient's abdomen -Educated patient to go slow with the liquids. Recommend no straws or carbonated beverages. -Continue Ensure protein drinks -Encourage patient to ambulate -Encourage patient to use incentive spirometer -Continue pain management -Patient can shower -Continue to monitor AZAM drain output -DVT prophylaxis subcu heparin and GI prophylaxis Protonix Physician Vp Research note has been reviewed by physician. Signing provider agrees with the documented findings, assessment, and plan of care. I have personally seen and examined the patient, reviewed the EARLY CHILDHOOD ASSOCIATE /PAs history, exam and MDM and agree with the assessment and plan as written. Based on total visit time, I have performed more than 50% of the visit. As above: Patient still distended. He was having some chest discomfort and there was concern earlier today regarding the possibility of PE. CAT scan chest and abdomen was performed. Degree of inflammatory changes at the surgical site somewhat less than expected. No obvious pulmonary embolism per radiology. The patient despite his distention does not have significant bowel distention on CAT scan. Suspect some degree of third spacing. Decrease IV fluid rate to 100 cc/h. Add Toradol and switch morphine to Dilaudid for better analgesic. Continue ambulation. Minimize oral intake. Objective - Vital Signs Vital signs: Vital Signs Temp 98.3 F 09/13/23 08:00 Pulse 65 09/13/23 08:00 Resp 19 09/13/23 08:00 BP 141/87 09/13/23 08:00 Pulse Ox 96 09/13/23 08:00 FiO2 Intake & Output 09/12/23 09/13/23 09/13/23 18:59 06:59 18:59 Intake Total 360 Output Total 160 140 40 Balance 200 -140 -40 Intake: Oral 360 Output: Drainage 160 140 40 Right Lower Abdomen 160 140 40 Other: Voiding Method Toilet # Voids 5 - Labs CBC & Chem 7: 09/13/23 05:01 09/12/23 05:16 Labs: Abnormal Lab Results - Last 24 Hours (Table) 09/13/23 Range/Units 05:01 RBC 3.35 L (4.40-5.60) X 10*6/uL Hgb 10.0 L (13.0-17.0) g/dL Hct 30.6 L (39.6-50.0) % MPV 9.2 L (9.5-12.2) FL
[2023-09-13] MEDS: HYDROmorphone 1 MG/ML 1 ML SYRINGE IVP PRN (12:44)
--- NOTE | 2023-09-13 12:45 | CT ---
EXAMINATION: CTA CHEST, CT ABDOMEN AND PELVIS WITH IV CONTRAST DATE OF EXAM: 09/13/2023 12:07 PM HISTORY: Abdominal pain with recent appendectomy. TECHNIQUE: CTA of the chest followed by routine CT abdomen and pelvis was performed with sagittal, co jeyson and 3-D reformatted images. 100 mL of Isovue-370. CT dose lowering techniques were used, to inc lude: automated exposure control, adjustment for patient size, and or use of iterative reconstruction . COMPARISON: None FINDINGS: CHEST CTA: Lungs: There is a calcified granuloma within the right upper lobe posteriorly. There are some bands of opacities and platelike bands throughout the lungs bilaterally which are likely atelectasis. No fo sherrell consolidative changes otherwise seen. Pleura: Normal. Mediastinum And Jeanne: Normal. Pulmonary Arteries: Normal. Cardiovascular: Normal. Chest Wall: Normal. ABDOMEN/PELVIS: Liver: There is diffuse decreased attenuation of the liver which is compatible with fatty liver infil tration. No focal liver lesions are otherwise seen Gallbladder/Biliary: Normal. Pancreas: Normal. Spleen: Normal. Adrenal Glands: Normal. Kidneys: Normal. GI Tract: There are no dilated loops of bowel or free intraperitoneal air. The appendix has been raimundo [place]. There is a drainage catheter seen within the right lower quadrant with some stranding seen in th e region, however no drainable fluid collection or abscess is identified at this time. There is mild sigmoid colonic diverticulosis without evidence of diverticulitis. Mesentery/Peritoneum: Normal. Vasculature: Normal. Lymph Nodes: Normal. Abdominal Wall: Normal. Bladder: Normal. Reproductive: Normal. MUSCULOSKELETAL: Normal. IMPRESSION: 1. No evidence of pulmonary embolism. 2. No evidence of thoracic or abdominal aortic aneurysm or dissection. 3. Hepatic steatosis. 4. Surgical changes of appendectomy with no drainable fluid collection or abscess seen at this time. 5. Changes within the lungs are favored to be atelectasis..
[2023-09-13] MEDS ORDERED: HYDROmorphone 1 MG/ML 1 ML SYRINGE IVP PRN (18:16)
[2023-09-13] MEDS: KETOROLAC 15 MG/ML 1 ML VIAL IVP SCH (18:52)
--- NOTE | 2023-09-14 12:42 | P.PN ---
Subjective Progress Note Date: 09/14/23 CHIEF COMPLAINT: Perforated appendicitis HISTORY OF PRESENT ILLNESS: Patient is postop day #4 status post laparoscopic appendectomy with drain placement. Patient reports he is feeling better today. His pain is better controlled. He denies any nausea or vomiting. He had a small bowel movement and flatus. He is tolerating the clear liquids. Afebrile. CTA of the chest no evidence of PE. CT of abdomen reported surgical changes of appendectomy with no drainable fluid collection or abscess. Changes in lungs are favored to be atelectasis. AZAM drain 80 mL serosanguineous output PHYSICAL EXAM: VITAL SIGNS: Reviewed. GENERAL: Well-developed in no acute distress. ABDOMEN: mildly distended. Incision sites clean dry and intact. Nontender NEUROLOGIC: Alert and oriented. Cranial nerves II through XII grossly intact. ASSESSMENT: 1. Perforated appendicitis status post laparoscopic appendectomy PLAN: -Continue clear liquid diet. No straws or carbonated beverages -Continue pain management -Continue IV fluids at decreased rate of 75 mL/h -Continue Ensure protein drinks -Encourage patient to ambulate -Encourage patient to use incentive spirometer -Continue pain management -DVT prophylaxis subcu heparin and GI prophylaxis Protonix Physician Plisse Machine Operator Helper note has been reviewed by physician. Signing provider agrees with the documented findings, assessment, and plan of care. Objective - Vital Signs Vital signs: Vital Signs Temp 98.5 F 09/14/23 10:33 Pulse 96 09/14/23 10:33 Resp 16 09/14/23 11:36 BP 134/83 09/14/23 10:33 Pulse Ox 97 09/14/23 07:49 FiO2 Intake & Output 09/13/23 09/14/23 09/14/23 18:59 06:59 18:59 Output Total 220 50 80 Balance -220 -50 -80 Output: Drainage 220 50 80 Right Lower Abdomen 220 50 80 Other: Voiding Method Toilet Toilet # Voids 3 5 # Bowel Movements 1 - Labs CBC & Chem 7: 09/13/23 05:01 09/12/23 05:16
--- NOTE | 2023-09-15 11:47 | P.PN ---
Subjective Progress Note Date: 09/15/23 CHIEF COMPLAINT: Perforated appendicitis HISTORY OF PRESENT ILLNESS: Patient is postop day #5 status post laparoscopic appendectomy with drain placement. Patient feeling better today. He was able to eat oatmeal. He did have a small bowel movement yesterday. And a smear of BM this morning. He is having flatus. Denies any nausea or vomiting. Afebrile. AZAM drain with 80 mL serosanguineous output. Afebrile. PHYSICAL EXAM: VITAL SIGNS: Reviewed. GENERAL: Well-developed in no acute distress. ABDOMEN: Abdomen appears softer. Mildly distended. Incision sites clean dry and intact. Nontender NEUROLOGIC: Alert and oriented. Cranial nerves II through XII grossly intact. ASSESSMENT: 1. Perforated appendicitis status post laparoscopic appendectomy PLAN: -Diet advance to full liquids. No straws or carbonated beverages -Discontinue IV fluids -Continue pain management -Continue Ensure protein drinks -Encourage patient to ambulate -Encourage patient to use incentive spirometer -Continue pain management -DVT prophylaxis subcu heparin and GI prophylaxis Protonix Physician Prototype Technician note has been reviewed by physician. Signing provider agrees with the documented findings, assessment, and plan of care. I have personally seen and examined the patient, reviewed the ACTION FINISHER /PAs history, e xam and MDM and agree with the assessment and plan as written. Based on total visit time, I have performed more than 50% of the visit. As above: Patient apparently had some lightheadedness when walking earlier today. He is afebrile. Tolerating liquids. Mild nausea this morning but that has resolved. Continue advancing diet as tolerated. Continue ambulation. Will consult hospitalist regarding lightheadedness. Recheck labs tomorrow. Objective - Vital Signs Vital signs: Vital Signs Temp 98.5 F 09/15/23 07:20 Pulse 69 09/15/23 07:20 Resp 17 09/15/23 07:20 BP 132/89 09/15/23 07:20 Pulse Ox 97 09/15/23 07:20 FiO2 Intake & Output 09/14/23 09/15/23 09/15/23 18:59 06:59 18:59 Output Total 80 70 80 Balance -80 -70 -80 Output: Drainage 80 70 80 Right Lower Abdomen 80 70 80 Other: Voiding Method Toilet Toilet # Voids 3 6 # Bowel Movements 1 - Labs CBC & Chem 7: 09/13/23 05:01 09/12/23 05:16
[2023-09-15] MEDS: LEVOTHYROXINE 25 MCG TAB PO SCH (16:26)
[2023-09-16 07:58] VITALS: TEMP 98.4
[2023-09-16] MEDS: FENOFIBRATE 160 MG TAB PO SCH (08:48)
[2023-09-16] MEDS: ATORVASTATIN 20 MG TAB PO SCH (08:48)
[2023-09-16] MEDS: amLODIPine 10 MG TAB PO SCH (08:53)
[2023-09-16 10:26] LABS: Basophils # (A) 0.07 X 10*3/uL (0.00-0.10); Basophils % (A) 0.8 %; Eosinophils # (A) 0.41 X 10*3/uL (0.04-0.35); Eosinophils % (A) 4.9 %; HCT 29.7 % (39.6-50.0); HGB 9.7 g/dL (13.0-17.0); Lymphocytes # (A) 1.85 X 10*3/uL (0.90-5.00); MCH 29.9 pg (27.0-32.0); MCHC 32.7 g/dL (32.0-37.0); MCV 91.7 FL (80.0-97.0); Mean Platelet Volume 9.1 FL (9.5-12.2); Monocytes # (A) 0.65 X 10*3/uL (0.20-1.00); Monocytes % (A) 7.7 %; NRBC Per 100 WBC 0 X 10*3/uL (0.00-0.01); Neutrophils # (A) 5.38 X 10*3/uL (1.80-7.70); Neutrophils % (A) 64.1 %; Platelet Count 330 X 10*3/uL (140-440); RBC 3.24 X 10*6/uL (4.40-5.60)
[2023-09-16 10:38] LABS: Blood Urea Nitrogen 11.2 mg/dL (9.0-27.0); Calcium 8.7 mg/dL (8.7-10.3); Chloride 105 mmol/L (96-109); Glucose 93 mg/dL (70-110); Sodium 139 mmol/L (135-145)
--- NOTE | 2023-09-16 13:37 | P.CONS ---
History of Present Illness - Reason for Consult Consult date: 09/16/23 Medical management - History of Present Illness History of present illness; 57-year-old gentleman past medical significant for hypertension, hyperlipidemia who initially presented to the hospital on 09/10/2023 for abdominal pain. Patient has been having this stomach for the last few days which is located around umbilicus area radiating to the right upper and right lower quadrant. Patient also complained of nausea and vomiting. Patient also had decreased appetite. Initial workup in the ER showed patient to have CT scan findings of acute appendicitis with a dilated and inflamed appendix measuring up to 2.5 cm. Patient was admitted to surgery and patient underwent laparoscopic appendicectomy on 09/10/2023 Postoperatively patient had drain placed. Patient was on IV antibiotics. Internal medicine medicine team team were consulted for postoperative management and lightheadedness REVIEW OF SYSTEMS: CONSTITUTIONAL: No fever, no malaise, no fatigue. HEENT: No recent visual problems or hearing problems. Denied any sore throat. CARDIOVASCULAR: No chest pain, orthopnea, PND, no palpitations, no syncope. PULMONARY: No shortness of breath, no cough, no hemoptysis. GASTROINTESTINAL: No diarrhea, no nausea, no vomiting, no abdominal pain. NEUROLOGICAL: No headaches, no weakness, no numbness. HEMATOLOGICAL: Denies any bleeding or petechiae. GENITOURINARY: Denies any burning micturition, frequency, or urgency. MUSCULOSKELETAL/RHEUMATOLOGICAL: Denies any joint pain, swelling, or any muscle pain. ENDOCRINE: Denies any polyuria or polydipsia. The rest of the 14-point review of systems is negative. PHYSICAL EXAMINATION: GENERAL: The patient is alert and oriented x3, not in any acute distress. Well developed, well nourished. HEENT: Pupils are round and equally reacting to light. EOMI. No scleral icterus. No conjunctival pallor. Normocephalic, atraumatic. No pharyngeal erythema. No thyromegaly. CARDIOVASCULAR: S1 and S2 present. No murmurs, rubs, or gallops. PULMONARY: Chest is clear to auscultation, no wheezing or crackles. ABDOMEN: Soft,, laparoscopic incisions seen, drain in place MUSCULOSKELETAL: No joint swelling or deformity. EXTREMITIES: No cyanosis, clubbing, or pedal edema. NEUROLOGICAL: Gross neurological examination did not reveal any focal deficits. SKIN: No rashes. Assessment and plan Perforated appendicitis status post laparoscopic appendectomy Lightheadedness Hypertension Hyperlipidemia Monitor vital signs Monitor CBC Monitor CMP Check orthostatics Continue pain management per orthopedics Continue Norvasc Continue Lipitor Surgery following Labs and medication were reviewed.. Continue same treatment. Continue with symptomatic treatment. Resume home medication. Monitor labs and vitals. DVT and GI prophylaxis. Further recommendations as per clinical course of the patient Dictation was produced using [employer] dictation software. please excuse any grammatical, word or spelling errors. Past Medical History Past Medical History: Thyroid Disorder Additional Past Medical History / Comment(s): Anemia History of Any Multi-Drug Resistant Organisms: None Reported Past Surgical History: No Surgical Hx Reported Past Psychological History: No Psychological Hx Reported Smoking Status: Never smoker Past Alcohol Use History: Occasional Past Drug Use History: None Reported Medications and Allergies Home Medications Medication Instructions Recorded Confirmed Type Fenofibrate [Lofibra] 160 mg PO DAILY 10/22/22 09/10/23 History Losartan Potassium [Cozaar] 100 mg PO DAILY 10/22/22 09/10/23 History amLODIPine [Norvasc] 10 mg PO DAILY 10/22/22 09/10/23 History Levothyroxine Sodium [Synthroid] 25 mcg PO DAILY 09/10/23 09/10/23 History Rosuvastatin [Crestor] 10 mg PO DAILY 09/10/23 09/10/23 History tadalafiL 20 mg PO DAILY PRN 09/10/23 09/10/23 History Allergies Allergy/AdvReac Type Severity Reaction Status Date / Time No Known Allergies Allergy Verified 09/10/23 10:51 Physical Exam Vitals: Vital Signs Temp Pulse Pulse Resp BP Pulse Ox 09/16/23 08:03 97 09/16/23 06:56 98.4 F 58 L 18 140/78 97 09/16/23 02:01 98.7 F 78 20 126/67 96 09/15/23 20:08 98.6 F 63 17 152/87 09/15/23 16:32 58 L 132/75 09/15/23 13:55 98.8 F 61 18 157/89 97 Intake and Output 09/15/23 09/16/23 09/16/23 22:59 06:59 14:59 Intake Total 1200 Output Total 70 60 Balance -70 1140 Intake: Oral 1200 Output: Drainage 70 60 Right Lower Abdomen 70 60 Other: Voiding Method Toilet # Voids 4 Results CBC & Chem 7: 09/16/23 06:52 09/16/23 06:52
--- NOTE | 2023-09-16 14:00 | P.DS ---
Providers Date of admission: 09/13/23 09:15 Expected date of discharge: 09/16/23 Attending physician: Rene Hassan Consults: 09/15/23 15:51 Consult Physician Routine Consulting Provider: Renee Davalos Consult Reason/Comments: Medical management, lightheadedness Do you want consulting provider notified?: Yes Primary care physician: Deonte Wilkes [facility] Course: Discharge diagnosis 1. Perforated appendicitis status post laparoscopic appendectomy Hospital course This is a 57-year-old male who presented to the hospital with complaints of right lower quadrant abdominal pain. Patient had CT scan evidence of acute appendicitis. Patient is status post laparoscopic appendectomy for a perforated appendicitis. He has AZAM drain in place. Patient's pain is controlled. Lynda erating diet. He is afebrile. He has been up and ambulating. Incision sites clean dry and intact. He is stable for discharge. Patient will be discharged with AZAM drain. Please refer to chart for any further details. Physician Ict Sales Assistant note has been reviewed by physician. Signing provider agrees with the documented findings, assessment, and plan of care. I have personally seen and examined the patient, reviewed the TRUCK DRIVER SUPERVISOR /PAs history, exam and MDM and agree with the assessment and plan as written. Based on total visit time, I have performed more than 50% of the visit. As above: Patient is doing well today. Tolerating diet. He would like to go home. November discharge. Follow-up 1 week. Continue oral antibiotics postdischarge. Patient Condition at Discharge: Stable Plan - Discharge Summary Discharge Rx Participant: Yes New Discharge Prescriptions: New Amoxic-Pot Clav 875-125Mg [Augmentin 875-125] 1 tab PO Q12HR 7 Days #14 tab Acetaminophen Tab [Tylenol] 1,000 mg PO Q6HR PRN #30 tablet PRN Reason: Pain No Action Fenofibrate [Lofibra] 160 mg PO DAILY Rosuvastatin [Crestor] 10 mg PO DAILY amLODIPine [Norvasc] 10 mg PO DAILY Losartan Potassium [Cozaar] 100 mg PO DAILY Levothyroxine Sodium [Synthroid] 25 mcg PO DAILY tadalafiL 20 mg PO DAILY PRN PRN Reason: E.D. Discharge Medication List Fenofibrate [Lofibra] 160 mg PO DAILY 10/22/22 [History] Losartan Potassium [Cozaar] 100 mg PO DAILY 10/22/22 [History] amLODIPine [Norvasc] 10 mg PO DAILY 10/22/22 [History] Levothyroxine Sodium [Synthroid] 25 mcg PO DAILY 09/10/23 [History] Rosuvastatin [Crestor] 10 mg PO DAILY 09/10/23 [History] tadalafiL 20 mg PO DAILY PRN 09/10/23 [History] Acetaminophen Tab [Tylenol] 1,000 mg PO Q6HR PRN #30 tablet 09/16/23 [Rx] Amoxic-Pot Clav 875-125Mg [Augmentin 875-125] 1 tab PO Q12HR 7 Days #14 tab 09/16/23 [Rx] Follow up Appointment(s)/Referral(s): Deonte Wilkes DO [Primary Care Provider] - 1-2 days Rene Hassan MD [Medical Doctor] - 1 Week Activity/Diet/Wound Care/Special Instructions: No lifting over 10 pounds You may shower. No soaking or tub baths for 2 weeks Very light activity until you are reevaluated at your follow up appointment with your surgeon Keep a log of AZAM drain output and bring with you to your follow-up appointment Milk/strip drains 2-3 times a day Discharge Disposition: HOME SELF-CARE
[2023-09-16 14:55] VITALS: BP 134/78; PULSE 63; RESP 16
== END 2023-09-16 17:37 | disposition home or self-care (01) | DRG 398 ==
LOC: EC 04:00 → 4SSUR 06:38 → OBSVTOIN 09-13 09:15
PROVIDERS: ADMIT Surgery; ATTEND Surgery
PROC: 0WQF4ZZ Repair Abdominal Wall, Percutaneous Endoscopic Approach (ICD-10-PCS; principal; 2023-09-10 12:00)
PROC: 0DTJ4ZZ Resection of Appendix, Percutaneous Endoscopic Approach (ICD-10-PCS; principal; 2023-09-10 12:00)
PROC: 0D9J40Z Drainage of Appendix with Drainage Device, Percutaneous Endoscopic Approach (ICD-10-PCS; principal; 2023-09-10 12:00)
DX: K35.32 Acute appendicitis with perforation, localized peritonitis, and gangrene, without abscess (principal); J98.11 Atelectasis; Z68.41 Body mass index [BMI] 40.0-44.9, adult; E66.01 Morbid (severe) obesity due to excess calories; D64.9 Anemia, unspecified; I10 Essential (primary) hypertension; K42.9 Umbilical hernia without obstruction or gangrene; Z28.310 Unvaccinated for COVID-19; E78.5 Hyperlipidemia, unspecified; E07.9 Disorder of thyroid, unspecified; G47.30 Sleep apnea, unspecified; Z79.890 Hormone replacement therapy; Z79.899 Other long term (current) drug therapy
CPT/HCPCS: 36415; 71275; 74176; 74177; 80048; 80053; 81001; 83690; 85025; 88304; 94760; 96361; 96365; 96366; 96375; 96376; 99285

== ENCOUNTER → 2023-10-14 | Outpatient (CLI) | payer BC ==
[2023-10-14 11:51] LABS: African American GFR (CKD) >90 (>60 ml/min/1.73 sqM); Blood Urea Nitrogen 21 mg/dL (9-20); Non-African American GFR(CKD) >90 (>60 ml/min/1.73 sqM)
--- NOTE | 2023-10-14 12:33 | CT ---
EXAMINATION TYPE: CT abdomen pelvis w con DATE OF EXAM: 10/14/2023 COMPARISON: 09/13/2023 INDICATION: RECENT APPY AND UMBILICAL CORD 3-9-24. PAIN IN SURGICAL SITES. DLP: 2709.10 mGycm, Automated exposure control for dose reduction was used. CONTRAST: 100ML mL of Isovue 300. Study performed with Oral Contrast TECHNIQUE: Axial images were obtained from above the diaphragm to the pubic rami in the axial plane a t 5 mm thick sections. Reconstructed images are reviewed on the computer in the coronal plane. FINDINGS: Limited CT sections are obtained the lung bases. The lung bases are clear. CT ABDOMEN: Liver: Mild fatty infiltration. Spleen: Normal Pancreas: Normal Adrenal glands: The adrenal glands are normal. Gallbladder: Normal Kidneys: No masses are evident. No hydronephrosis is present. No cysts are present. No suspicious renal stones. Aorta: Vascular calcification is within the aorta. Inferior vena cava: Normal. CT PELVIS: There are increased densities at the umbilicus. No underlying discrete abscess is evident. Trapped mesenteric fat may be present. No suspicious subcutaneous masses or collections evident. Loops of bowel within the abdomen and pelvis are normal. Diverticular changes are within the sigmoid colon. No suspicious adjacent inflammatory changes. There are loops of bowel which are incompletel y distended or lack oral contrast limiting their evaluation. Appendix: Surgically absent. No suspicious inflammatory changes or abscess formation identified in th is region Urinary bladder: Normal. Genitourinary structures: Prostate is normal Osseous structures: No suspicious lytic or sclerotic lesions. IMPRESSION: 1. There is increased density within the periumbilical region. Mesenteric fat may be present. A disc rete abscess is not identified. 2. No suspicious inflammatory changes or abscess in the postsurgical appendectomy site. 3. Mild fatty infiltration liver. 4. Diverticulosis without acute diverticulitis.
== END | disposition home or self-care (01) ==
LOC: RADCTMAIN 10:01
PROVIDERS: ATTEND Surgery
DX: K57.30 Diverticulosis of large intestine without perforation or abscess without bleeding (principal); K76.0 Fatty (change of) liver, not elsewhere classified; K35.31 Acute appendicitis with localized peritonitis and gangrene, without perforation; Z98.890 Other specified postprocedural states; Z90.49 Acquired absence of other specified parts of digestive tract
CPT/HCPCS: 82565; 84520; 74177; 36415; Q9967

== ENCOUNTER 2024-06-06 05:52 | Day surgery (SDC) | payer BC ==
[2024-05-30 12:43] VITALS: BMI 43.0
[~2024-06-06 05:52] MED LIST: LIDOCAINE 1% (10MG/ML) FOR IV START INTRADERMA PRN; fentaNYL (PF) 50 MCG/ML 2 ML AMP IVP PRN
[2024-06-06 06:58] LABS: HCT 37.1 % (39.0-53.0); HGB 12.6 gm/dL (13.0-17.5); MCH 30.3 pg (25.0-35.0); MCHC 33.8 g/dL (31.0-37.0); MCV 89.5 fL (80.0-100.0); Mean Platelet Volume 6.6; Platelet Count 329 k/uL (150-450); RBC 4.15 m/uL (4.30-5.90); RDW 13.3 % (11.5-15.5); WBC 7.8 k/uL (3.8-10.6)
[2024-06-06] MEDS: ONDANSETRON 4 MG/2 ML VIAL IVP ONE (07:00)
[2024-06-06] MEDS: LACTATED RINGERS 1,000 ML IV SCH (07:01)
[2024-06-06] MEDS: DEXAMETHASONE SOD PHOSPHATE 4 MG/ML 1 ML VIAL IV ONE (07:01)
[2024-06-06] MEDS: SCOPOLAMINE 1 MG/72 HR PATCH TRANSDERM STA (07:02)
[2024-06-06 07:10] LABS: African American GFR (CKD) >90 (>60 ml/min/1.73 sqM); Anion Gap 10 mmol/L; Blood Urea Nitrogen 27 mg/dL (9-20); Calcium 9.2 mg/dL (8.4-10.2); Carbon Dioxide 23 mmol/L (22-30); Chloride 104 mmol/L (98-107); Glucose 107 mg/dL (74-99); Non-African American GFR(CKD) >90 (>60 ml/min/1.73 sqM); Potassium 3.8 mmol/L (3.5-5.1); Sodium 137 mmol/L (137-145)
[2024-06-06] MEDS: HEPARIN SODIUM,PORCINE 5,000 UNIT/ML 1 ML VIAL SQ STA (07:26)
[2024-06-06] MEDS: MIDAZOLAM 2 MG/2 ML VIAL IV PRN (07:26)
[2024-06-06] MEDS ORDERED: GLYCOPYRROLATE 0.2 MG/ML 2 ML VIAL ONE (07:31)
[2024-06-06] MEDS ORDERED: HYDROmorphone (PF) 1 MG/ML ONE (07:31)
[2024-06-06] MEDS ORDERED: NEOSTIGMINE 1 MG/ML 10 ML VIAL ONE (07:31)
[2024-06-06] MEDS ORDERED: fentaNYL (PF) 50 MCG/ML 2 ML AMP ONE (07:31)
[2024-06-06] MEDS ORDERED: KETOROLAC 15 MG/ML 1 ML VIAL ONE (07:31)
[2024-06-06] MEDS ORDERED: PROPOFOL 10 MG/ML 20 ML VIAL IV ONE (07:31)
[2024-06-06] MEDS ORDERED: ROCURONIUM 10 MG/ML (5 ML VIAL) IV ONE (07:31)
[2024-06-06] MEDS ORDERED: DEXAMETHASONE SOD PHOSPHATE 4 MG/ML 1 ML VIAL ONE (07:31)
[2024-06-06] MEDS ORDERED: LIDOCAINE 1% INJ 10MG/ML (20 ML MDV) ONE (07:31)
[2024-06-06] MEDS ORDERED: ROPIVACAINE 5 MG/ML 30 ML VIAL ONE (07:31)
[2024-06-06] MEDS ORDERED: SUCCINYLCHOLINE CHLORIDE 200 MG/10 ML VIAL IV ONE (07:31)
[2024-06-06] MEDS: IV FLUID CONTINUATION 1,000 ML IV ONE ×4 (07:33→10:12)
[2024-06-06] MEDS: ceFAZolin 3 GM in SODIUM CHLORIDE 0.9% 100 ML IVPB PRN (07:37)
[2024-06-06] MEDS: LIDOCAINE 1%-EPI 1:100,000 20 ML VIAL SQ ONE ×2 (08:28)
[2024-06-06 09:30] VITALS: TEMP 97.2
[2024-06-06] MEDS: HYDROmorphone 0.5 MG/0.5 ML SYRINGE IVP PRN (09:52)
[2024-06-06 10:32] VITALS: RESP 20
[2024-06-06] MEDS: HYDROcodone/APAP 5-325MG 1 EACH TAB PO STA (10:43)
[2024-06-06] MEDS: droPERidol 5 MG/2 ML VIAL IVP ONE (10:50)
[2024-06-06 11:10] VITALS: BP 101/58
[2024-06-06 13:19] VITALS: PULSE 70
--- NOTE | 2024-06-06 22:11 | P.OP ---
Date of Procedure: 06/06/24 Preoperative Diagnosis: umbilical hernia Postoperative Diagnosis: umbilical hernia Procedure(s) Performed: umbilical hernia Anesthesia: NINFA Surgeon: Mika Giordano Pathology: none sent Condition: stable Disposition: PACU Indications for Procedure: umbilical hernia Description of Procedure: the patient was brought to the operating suite where he was cleaned and draped in sterile fashion a timeout was performed and everyone agreed with metastatic. Excellent left upper quadrant incision was made using #15 blade. A 5 mm Visiport was then used to gain access to the abdomen. Tumor working ports were placed in the upper midabdomen and the right upper quadrant and the 5 mm port was then exchanged for 8 mm robotic port. The robot was undocked and then electro cautery was then used to take down the incarcerated omental fat. The falciform ligament was also taken down to make room for the mesh. A 2-0 V LOC suture was then used to close the umbilical defect. Next a kelsie incision was made in the umbilicus and a ventral light mesh was tacked up to the abdominal wall. This was sutured to the abdominal wall using a 20 V-block suture in a running fashion. Once this was done the abdomen was then incised desufflated the sutures were removed and all attachments were removed under direct visualization. We then closed the incisions using 4-0 Vicryl suture in an interrupted fashion. The patient tolerated the procedure well was then transported to PACU in stable condition.
== END 2024-06-06 13:25 | disposition home or self-care (01) ==
LOC: OR 05:52
PROVIDERS: ATTEND Surgery
DX: K42.0 Umbilical hernia with obstruction, without gangrene (principal); I10 Essential (primary) hypertension; E78.5 Hyperlipidemia, unspecified; G47.33 Obstructive sleep apnea (adult) (pediatric); E03.9 Hypothyroidism, unspecified; E66.01 Morbid (severe) obesity due to excess calories; Z79.890 Hormone replacement therapy; Z79.899 Other long term (current) drug therapy; Z90.49 Acquired absence of other specified parts of digestive tract; Z98.890 Other specified postprocedural states
CPT/HCPCS: 49592; S2900; 64488; 80048; 85027